=== PATIENT | female | born 1960 | race Caucasian/White ===

== ENCOUNTER 2018-02-12 18:10 | Emergency (ER) | payer MEDICAID ==
[~2018-02-12] VITALS: Ht 175.3 cm; Wt 151.0 kg
[2018-02-12] MEDS ORDERED: CHOL200074 PO (18:50)
[2018-02-12] MEDS ORDERED: FLUT1DIS3 INH (18:50)
[2018-02-12] MEDS ORDERED: BACL-19 PO (18:50)
[2018-02-12] MEDS ORDERED: ALBU6.7H INH (18:50)
[2018-02-12] MEDS ORDERED: LISI-170 PO (18:50)
[2018-02-12] MEDS ORDERED: LOVA40TA2 PO (18:50)
[2018-02-12] MEDS ORDERED: TEMA30CA PO (18:50)
[2018-02-12] MEDS ORDERED: FAMO20TA7 PO (18:50)
[2018-02-12] MEDS ORDERED: CLON1TAB11 PO (18:50)
[2018-02-12] MEDS ORDERED: OXYC10TA6 PO (18:50)
[2018-02-12] MEDS ORDERED: LORA10TA62 PO (18:50)
[2018-02-12] MEDS ORDERED: VENL225T PO (18:50)
[2018-02-12] MEDS ORDERED: LINA290C PO (18:50)
[2018-02-12] MEDS ORDERED: BUSP10TA PO (18:50)
[2018-02-12] MEDS ORDERED: TOPI100T8 PO (18:50)
[2018-02-12] MEDS ORDERED: ESOM20CA57 PO (18:50)
[2018-02-12] MEDS ORDERED: GABA300C10 PO (18:50)
[2018-02-12] MEDS ORDERED: ACETAMINOPHEN 500 MG TABLET PO ONE (19:00)
[2018-02-12 19:18] LABS: ALANINE AMINOTRANSFERASE 16 U/L (12-78); ALBUMIN 3.2 g/dL (3.4-5.0); ANION GAP 8 mmol/L (5-15); CALCIUM 8.6 mg/dL (8.5-10.1); CHLORIDE 116 mmol/L (98-107); CREATININE 1.14 mg/dL (0.55-1.02)
[2018-02-12 19:22] LABS: ALKALINE PHOSPHATASE 110 U/L (45-117); BILIRUBIN,TOTAL 0.3 mg/dL (0.2-1.0); TOTAL PROTEIN 7.2 g/dL (6.4-8.2); TROPONIN I < 0.015 ng/mL (0.000-0.045)
[2018-02-12] MEDS ORDERED: SODIUM CHLORIDE FLUSH 10ML SYR IVF ONE (19:30)
[2018-02-12 19:54] LABS: BASOPHILS # (AUTO) 0.16 x10^3/uL (0-0.1); BASOPHILS % (AUTO) 2 % (0-1); EOSINOPHILS # (AUTO) 0.31 x10^3/uL (0-0.4); EOSINOPHILS % (AUTO) 4 % (1-7); LYMPHOCYTES # (AUTO) 2.42 x10^3/uL (1-3.4); LYMPHOCYTES % (AUTO) 32 % (22-44); MD SCAN; MEAN CORPUSCULAR HEMOGLOBIN 30.6 pg (27.0-34.8); MEAN CORPUSCULAR HGB CONC 33.6 g/dL (32.4-35.8); MEAN PLATELET VOLUME 8.8 fL (7.4-10.4); MONOCYTES # (AUTO) 0.52 x10^3/uL (0.2-0.8); MONOCYTES % (AUTO) 7 % (2-9); NEUTROPHILS # (AUTO) 4.07 x10^3/uL (1.8-6.8); NEUTROPHILS % (AUTO) 54 % (42-75); PLATELET COUNT 193 x10^3/uL (130-400); RED BLOOD COUNT 4.41 x10^6/uL (3.82-5.3); RED CELL DISTRIBUTION WIDTH 13.3 % (9.6-15.2)
[2018-02-12] MEDS ORDERED: ACETAMINOPHEN 500 MG TABLET ONE (19:58)
[2018-02-12 20:12] LABS: CULTURE INDICATED? YES; MICROSCOPIC INDICATED
[2018-02-12 22:05] VITALS: BP 121/89
== END 2018-02-12 22:07 | disposition home or self-care (01) ==
LOC: ED 20:44
DX: N30.00 Acute cystitis without hematuria (principal); R41.82 Altered mental status, unspecified; I10 Essential (primary) hypertension; E11.9 Type 2 diabetes mellitus without complications
CPT/HCPCS: 36415; 70450; 71045; 80053; 81001; 84443; 84484; 85025; 87086; 93005; 99285